=== PATIENT | female | born 1970 | race Two or more races ===

== ENCOUNTER 2016-03-14 17:31 | Emergency (ER) | payer SELFPAY ==
[~2016-03-14] VITALS: Ht 165.1 cm; Wt 77.1 kg
[~2016-03-14 17:31] MED LIST: NITR100C62 PO
[2016-03-14 17:40] VITALS: BP 176/106
[2016-03-14] MEDS ORDERED: FAMOTIDINE 20 MG TABLET. PO ONE (18:30)
[2016-03-14] MEDS ORDERED: PREDNISONE 20 MG TABLET PO ONE (18:30)
[2016-03-14] MEDS ORDERED: DIPHENHYDRAMINE HCL 25 MG CAPSULE PO ONE (18:30)
[2016-03-14] MEDS ORDERED: CIPR500T94 PO (18:35)
[2016-03-14] MEDS ORDERED: FAMO-63 PO (18:35)
[2016-03-14] MEDS ORDERED: PRED50TA PO (18:35)
[2016-03-14] MEDS ORDERED: DIPH25CA58 PO (18:35)
--- NOTE | 2016-03-14 18:35 | PHYS DOC ---
Past Medical History Past Medical History: Diabetes-Type II, High Cholesterol, Hypertension Past Surgical History: , Hysterectomy Alcohol Use: None Drug Use: None Adult General Chief Complaint Chief Complaint: ALLERGIC REACTION HPI HPI Patient is a 45 year old female who presents for allergic reaction to Bactrim which he started today. He received the medicine yesterday for UTI. Patient states he developed a rash minutes after taking the medication. Review of Systems Review of Systems Constitutional: Denies fever or chills [] Eyes: Denies change in visual acuity, redness, or eye pain [] HENT: Denies nasal congestion or sore throat [] Respiratory: Denies cough or shortness of breath [] Cardiovascular: No additional information not addressed in HPI [] GI: Denies abdominal pain, nausea, vomiting, bloody stools or diarrhea [] : Denies dysuria or hematuria [] Musculoskeletal: Denies back pain or joint pain [] Integument: Allergic reaction to Bactrim, rash Neurologic: Denies headache, focal weakness or sensory changes [] Endocrine: Denies polyuria or polydipsia [] Current Medications Current Medications Current Medications Medications (Trade) Dose Ordered Sig/Berry Start Time Stop Time Status Last Admin Dose Admin Diphenhydramine HCl (Benadryl) 25 mg 1X ONCE 03/14/16 18:30 03/14/16 18:31 03/14/16 18:26 25 MG Famotidine (Pepcid) 20 mg 1X ONCE 03/14/16 18:30 03/14/16 18:31 03/14/16 18:26 20 MG Prednisone (Prednisone) 60 mg 1X ONCE 03/14/16 18:30 03/14/16 18:31 03/14/16 18:26 60 MG Allergies Allergies Allergies Coded Allergies Type Severity Reaction Last Updated Verified Penicillins Allergy Intermediate 03/14/16 No sulfamethoxazole Adverse Reaction Mild RASH, WATERY EYES 03/14/16 Yes trimethoprim Adverse Reaction Mild RASH, WATERY EYES 03/14/16 Yes Physical Exam Physical Exam Constitutional: Well developed, well nourished, no acute distress, non-toxic appearance. [] HENT: Normocephalic, atraumatic, bilateral external ears normal, oropharynx moist, no oral exudates, nose normal. [] Eyes: PERRLA, EOMI, conjunctiva normal, no discharge. [] Neck: Normal range of motion, no tenderness, supple, no stridor. [] Cardiovascular:Heart rate regular rhythm, no murmur [] Lungs & Thorax: Bilateral breath sounds clear to auscultation [] Abdomen: Bowel sounds normal, soft, no tenderness, no masses, no pulsatile masses. [] Skin: Small amount of papular erythematous rash on bilateral upper extremities and upper chest Back: No tenderness, no CVA tenderness. [] Extremities: No tenderness, no cyanosis, no clubbing, ROM intact, no edema. [] Neurologic: Alert and oriented X 3, normal motor function, normal sensory function, no focal deficits noted. [] Psychologic: Affect normal, judgement normal, mood normal. [] Current Patient Data Vital Signs Vital Signs Date Time Temp Pulse Resp B/P Pulse Ox O2 Delivery O2 Flow Rate FiO2 03/14/16 17:40 98.2 82 20 97 Room Air 98.2 EKG EKG [] Radiology/Procedures Radiology/Procedures [] Course & Med Decision Making Course & Med Decision Making Pertinent Labs and Imaging studies reviewed. (See chart for details) Patient is in the ED with an allergic reaction to Bactrim which she stated this morning for UTI. She has a small amount of rash on her chest and bilateral upper extremities. She was given Benadryl Pepcid and prednisone in the ED, discharged with the same and instructed not to take the Bactrim. I switched her to Cipro, she was provided return precautions and discharged in stable condition. Dragon Disclaimer Dragon Disclaimer This electronic medical record was generated, in whole or in part, using a voice recognition dictation system. Departure Departure Impression: Primary Impression: Allergic reaction to drug Disposition: 01 HOME, SELF-CARE Condition: STABLE Referrals: TOSIN CHARLES (PCP) Follow-up with your own doctor in 1-2 weeks Patient Instructions: Drug Allergy Additional Instructions: You were seen for an allergic reaction to Bactrim. Stop taking it. Take Benadryl every 4 hours, Pepcid for the next 7 days and prednisone for the next 4 days. We put you on Cipro for urinary tract infection. Ensure you complete it. Scripts Ciprofloxacin Hcl (Cipro)500 Mg Tablet1 Tab PO BID #14 TAB Prov:PIA PIERRE APRN 03/14/16 Diphenhydramine Hcl (Benadryl)25 Mg Capsule1 Cap PO Q4-6HRS PRN RASH #30 CAP Ref 1 Prov:PIA PIERRE APRN 03/14/16 Famotidine (Pepcid)20 Mg [id number] Mg PO DAILY #7 TAB Prov:PIA PIERRE APRN 03/14/16 Prednisone 50 Mg Tablet1 Tab PO DAILY #4 TAB Prov:PIA PIERRE APRN 03/14/16 Problem Qualifiers Primary Impression: Allergic reaction to drug Encounter type: initial encounter Qualified Code: T78.40XA - Allergy, unspecified, initial encounter PIA PIERRE APRN Mar 14, 2016 18:35
== END 2016-03-14 18:41 | disposition home or self-care (01) ==
LOC: ER 17:31
DX: T37.0X5A Adverse effect of sulfonamides, initial encounter (principal); E11.9 Type 2 diabetes mellitus without complications; E78.00 Pure hypercholesterolemia, unspecified; I10 Essential (primary) hypertension; Z90.710 Acquired absence of both cervix and uterus; Z88.2 Allergy status to sulfonamides; Z88.0 Allergy status to penicillin; Z88.8 Allergy status to other drugs, medicaments and biological substances; Y92.89 Other specified places as the place of occurrence of the external cause
CPT/HCPCS: 99284; J7512; Q0163

== ENCOUNTER 2016-04-14 08:08 | Emergency (ER) | payer SELFPAY ==
[~2016-04-14] VITALS: Ht 152.4 cm; Wt 77.1 kg
[~2016-04-14 08:08] MED LIST changes: +CIPR500T94 PO; +DIPH25CA58 PO; +FAMO-63 PO; +PRED50TA PO
[2016-04-14 08:38] VITALS: BP 159/88
[2016-04-14] MEDS ORDERED: FLUT9.9S NS (08:46)
--- NOTE | 2016-04-14 08:46 | PHYS DOC ---
Past Medical History Past Medical History: Diabetes-Type II, High Cholesterol, Hypertension Past Surgical History: , Hysterectomy Additional Information: nonsmoker Alcohol Use: None Drug Use: None Adult General Chief Complaint Chief Complaint: EARACHE/EAR PAIN HPI HPI Patient is a 45 year old female who presents with right ear pain for 2 days. She denies fever, nasal congestion, sore throat, or cough. She states that it feels like there is something in her ear. Her PCP is Katt Lundberg NP. Review of Systems Review of Systems Constitutional: Denies fever or chills. [] Eyes: Denies change in visual acuity, redness, or eye pain. [] HENT: Denies nasal congestion or sore throat. Reports right ear pain. Respiratory: Denies cough or shortness of breath. [] Integument: Denies rash or skin lesions. [] Neurologic: Denies headache, focal weakness or sensory changes. [] Allergies Allergies Allergies Coded Allergies Type Severity Reaction Last Updated Verified Penicillins Allergy Intermediate 03/14/16 No sulfamethoxazole Adverse Reaction Mild RASH, WATERY EYES 03/14/16 Yes trimethoprim Adverse Reaction Mild RASH, WATERY EYES 03/14/16 Yes Physical Exam Physical Exam Constitutional: Well developed, well nourished, no acute distress, non-toxic appearance. [] HENT: Normocephalic, atraumatic, bilateral external ears normal, oropharynx moist, no oral exudates, nose normal. Bilateral TMs without erythema or bulging. The ear canals are clear without cerumen, discharge, or edema. There is no posterior pharyngeal erythema or tonsillar edema. Bilateral nasal turbinates are swollen and erythematous. Eyes: PERRLA, EOMI, conjunctiva normal, no discharge. [] Neck: Normal range of motion, no tenderness, supple, no stridor. [] Skin: Warm, dry, no erythema, no rash. [] Neurologic: Alert and oriented X 3, normal motor function, normal sensory function, no focal deficits noted. [] Psychologic: Affect normal, judgement normal, mood normal. [] EKG EKG [] Radiology/Procedures Radiology/Procedures [] Course & Med Decision Making Course & Med Decision Making Pertinent Labs and Imaging studies reviewed. (See chart for details) [] Dragon Disclaimer Dragon Disclaimer This electronic medical record was generated, in whole or in part, using a voice recognition dictation system. Departure Departure Impression: Primary Impression: Otalgia of right ear Disposition: HOME, SELF-CARE Condition: STABLE Referrals: KATT LUNDBERG (PCP) Patient Instructions: Otalgia-Brief Additional Instructions: Your ear is not infected. You do not have anything in the ear canal. Please use the prescribed nasal spray daily to help decrease pressure in your ears. Please follow up with the Ears, Nose, and Throat doctor listed below if your pain continues. Please be sure to tell them that you live in [facility] when scheduling an appointment. ENT doctor- Dr. Ortiz at [phone]. Return to the emergency department if you have any new or concerning symptoms. Scripts Fluticasone Propionate (Flonase Allergy Relief)9.9 Ml [place].susp2 Sprays NS DAILY #1 BOTTLE Prov:ROSA CHAU 04/14/16 ROSA CHAU Apr 14, 2016 08:46
== END 2016-04-14 09:17 | disposition home or self-care (01) ==
LOC: ER 08:08
DX: H92.01 Otalgia, right ear (principal); E11.9 Type 2 diabetes mellitus without complications; E78.00 Pure hypercholesterolemia, unspecified; I10 Essential (primary) hypertension; Z88.0 Allergy status to penicillin; Z88.1 Allergy status to other antibiotic agents
CPT/HCPCS: 99283

== ENCOUNTER → 2021-06-03 | Outpatient (CLI) | payer OTHER ==
[~2021-06-03] MED LIST changes: +FLUT9.9S NS
--- NOTE | 2021-06-03 10:20 | RAD ---
INDICATION: Reason: enlarging ventral hernia / Spl. Instructions: / History: COMPARISON: None. TECHNIQUE: Axial CT images were obtained through the abdomen and pelvis without intravenous contrast. One or more of the following individualized dose reduction techniques were utilized for this examinat ion: 1. Automated exposure control; 2. Adjustment of the mA and/or kV according to patient size; 3 . Use of iterative reconstruction technique. FINDINGS: Vascular: Scattered calcific atherosclerosis. Hepatobiliary: No intrahepatic bile duct dilation. Gallbladder is distended at time of exam. No perip ancreatic fluid collection. Duodenal diverticulum in the region. Pancreas: No peripancreatic edema. Spleen: Spleen unremarkable. Renal/Bladder: No significant hydronephrosis. There is some lobulation of renal contour. Urinary blad soren has minimal urine within it. Gastrointestinal: At the anterior pelvic wall there is a large fat-containing hernia identified. The defect in the anterior wall measures approximately 38 mm in thickness. The hernia sac has an irregula r shape but extends for approximately 112 x 16 mm. There is a smaller fat-containing umbilical hernia just superior to this site. Colonic diverticulosis. No periappendiceal inflammatory changes. At the right adnexa there is a masslike region identified. Difficult to tell if this is exophytic off of the uterus or if this is a right adnexal mass. This measures approximately 45 x 58 mm. There are clips in the bilateral adnexa. Degenerative changes of the spine. This includes at L1-2 where there is a disc osteophyte complex wit h associated neural foraminal stenosis. IMPRESSION: * Fat-containing anterior abdominal wall hernia as well as fat-containing umbilical hernia. * Masslike region at the right adnexa. This could either be secondary to an exophytic uterine mass s uch as fibroid or a right adnexal mass. This has a solid appearance. Follow-up ultrasound or MRI coul d be obtained to further assess. Electronically signed by: Vivek Cervantes MD (06/03/2021 10:17 AM) [id number]
== END ==
LOC: CT 09:12
PROVIDERS: ATTEND Family Medicine
DX: K43.9 Ventral hernia without obstruction or gangrene (principal); K42.9 Umbilical hernia without obstruction or gangrene; K57.10 Diverticulosis of small intestine without perforation or abscess without bleeding; M47.819 Spondylosis without myelopathy or radiculopathy, site unspecified; M25.78 Osteophyte, vertebrae; M48.00 Spinal stenosis, site unspecified
CPT/HCPCS: 74176